=== PATIENT | male | born 1945 | race Caucasian/White ===

== ENCOUNTER → 2017-01-08 | Outpatient (CLI) | payer MEDICARE, OTHER ==
--- NOTE | 2017-01-10 00:24 | RAD ---
Procedure: XR CHEST 2 VIEWS Exam Date: 01/08/2017 Ordering Provider: MAK JAIN Clinical Indication: PREOP Comparison: None Findings: Cardiomediastinal silhouette is unremarkable. Aortic calcification. Focal lung consolidation: None Pleural effusion: None Pneumothorax: None Bones and soft tissues: Nonacute Impression: 1. No acute abnormalities in the chest. Electronically signed by: Wan Collado MD 01/10/2017 12:23 AM DIRECTOR OF COLLECTIONS
== END | disposition home or self-care (01) ==
LOC: LAB.O 15:51
PROVIDERS: ATTEND Orthopaedic Surgery
DX: Z01.812 Encounter for preprocedural laboratory examination (principal); M17.12 Unilateral primary osteoarthritis, left knee